=== PATIENT | female | born 1990 | race Caucasian/White ===

== ENCOUNTER 2021-03-23 22:16 | Emergency (ER) | payer OTHER ==
[~2021-03-23] VITALS: Ht 157.5 cm; Wt 55.3 kg
[~2021-03-23 22:16] MED LIST: KETO10TA2 PO; ORPH100T PO; SEPTRA DS TABLE1 TAB PO
[2021-03-24] MEDS ORDERED: PEPCID40 MG PO (03:47)
[2021-03-24] MEDS ORDERED: INTESTINEX680 M1 PO (03:47)
[2021-03-24] MEDS ORDERED: ZOFRAN8 MG PO (03:47)
== END 2021-03-24 03:58 ==
LOC: ER 22:16
DX: K52.9 Noninfective gastroenteritis and colitis, unspecified (principal)